=== PATIENT | female | born 1945 | race Caucasian/White ===

== ENCOUNTER 2016-11-30 11:11 | Emergency (ER) | payer MEDICARE, MEDICAID ==
[~2016-11-30] VITALS: Ht 165.1 cm; Wt 72.6 kg
--- NOTE | 2016-11-30 11:24 | NUR ---
RED SPOTS TO BILATERAL LOWER EXTREMITIES AND TRUNK OF BODY X 3 DAYS. PER PT SHE STARTED TAKING CLINDAMYCIN PRESCRIBED BY DENTIST FOR HER TOOTHACHE. AWAITING MD ORDER
[2016-11-30] MEDS ORDERED: predniSONE 10 MG TABLET PO ONE (11:30)
[2016-11-30] MEDS ORDERED: diphenhydrAMINE HCL 50 MG CAPSULE PO ONE (11:30)
[2016-11-30] MEDS ORDERED: FAMOTIDINE (20 MG) 20 MG TABLET PO ONE (11:30)
--- NOTE | 2016-11-30 11:30 | NUR ---
DR DUMONT AT BEDSIDE
--- NOTE | 2016-11-30 11:33 | NUR ---
DIRECTOR PRODUCT DEVELOPMENT AT BEDSIDE FOR BLOOD DRAW
[2016-11-30] MEDS ORDERED: diphenhydrAMINE HCL 50 MG CAPSULE ONE (11:34)
[2016-11-30] MEDS ORDERED: predniSONE 20 MG TABLET ONE (11:35)
[2016-11-30] MEDS ORDERED: FAMOTIDINE (20 MG) 20 MG TABLET ONE (11:35)
[2016-11-30 11:39] LABS: BASOPHILS % (AUTO) 0.4 % (0.0-2.0); EOSINOPHILS % (AUTO) 0.6 % (0.0-6.0); HEMATOCRIT 41 % (33-45); HEMOGLOBIN 13.7 g/dL (11.5-14.8); LYMPHOCYTES # (AUTO) 1.7 /CMM (0.8-4.8); LYMPHOCYTES % (AUTO) 29.3 % (20.0-44.0); MEAN CORPUSCULAR HEMOGLOBIN 31 PG (26.0-33.0); MEAN CORPUSCULAR HGB CONC 34 g/dl (31.0-36.0); MEAN CORPUSCULAR VOLUME 92 fL (82-100); MONOCYTES # (AUTO) 0.4 /CMM (0.1-1.30); MONOCYTES % (AUTO) 6.5 % (2.0-12.0); NEUTROPHILS # (AUTO) 3.8 /CMM (1.8-8.9); NEUTROPHILS % (AUTO) 63.2 % (43.0-81.0); PLATELET COUNT (AUTO) 165 /CMM (150-450); RDW COEFFICIENT OF VARIATION 12.8 (11.5-15.0); RED BLOOD CELL COUNT(AUTO) 4.43 MIL/uL (4.0-5.2); WHITE BLOOD COUNT (AUTO) 5.9 K/uL (4.3-11.0)
[2016-11-30 11:47] LABS: CALCIUM, SERUM 9.2 mg/dL (8.5-10.1); CARBON DIOXIDE 24 mmol/L (21-32); CHLORIDE 106 mmol/L (98-107); CREATININE 0.8 mg/dL (0.6-1.3); GLUCOSE 123 mg/dL (74-106); POTASSIUM 4.2 mmol/L (3.5-5.1); SODIUM SERUM 140 mmol/L (136-145); UREA NITROGEN, BLOOD 9 mg/dL (7-18)
[2016-11-30 11:52] LABS: ALANINE AMINOTRANSFERASE 68 U/L (12-78); ALKALINE PHOSPHATASE 51 U/L (46-116); ASPARTATE AMINOTRANSFERASE 64 U/L (15-37); BILIRUBIN,DIRECT 0.2 mg/dL (0.0-0.2); BILIRUBIN,TOTAL 0.8 mg/dL (0.2-1.0); TOTAL PROTEIN, SERUM 7.3 g/dL (6.4-8.2)
--- NOTE | 2016-11-30 12:35 | NUR ---
Patient discharged to home in stable condition. Written and verbal after care instructions given. Patient verbalizes understanding of instruction.
[2016-11-30 12:43] VITALS: BP 136/78
== END 2016-11-30 12:46 | disposition home or self-care (01) ==
LOC: ER 11:13
DX: T36.8X5A Adverse effect of other systemic antibiotics, initial encounter (principal); I10 Essential (primary) hypertension; I48.91 Unspecified atrial fibrillation; M19.90 Unspecified osteoarthritis, unspecified site; Z88.1 Allergy status to other antibiotic agents; Y92.89 Other specified places as the place of occurrence of the external cause
CPT/HCPCS: 36415; 80048; 80076; 85025; 99284; A4606; J7512; Q0163; Z7610

== ENCOUNTER 2016-12-01 23:03 | Emergency (ER) | payer MEDICARE, MEDICAID ==
[~2016-12-01] VITALS: Ht 160 cm; Wt 63.5 kg
[2016-12-01 23:16] VITALS: BP 161/78
== END 2016-12-02 00:25 | disposition home or self-care (01) ==
LOC: ER 23:06
DX: R21 Rash and other nonspecific skin eruption (principal); T50.995A Adverse effect of other drugs, medicaments and biological substances, initial encounter; I10 Essential (primary) hypertension; M19.90 Unspecified osteoarthritis, unspecified site; I48.91 Unspecified atrial fibrillation; Z88.1 Allergy status to other antibiotic agents; Y92.89 Other specified places as the place of occurrence of the external cause
CPT/HCPCS: Z7502